=== PATIENT | male | born 2000 | race Hispanic/Latino ===

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

== ENCOUNTER 2023-10-18 08:04 | Emergency (ER) | payer OTHER, SELFPAY | END 2023-10-18 08:35 | disposition home or self-care (01) | LOC: MADERS 08:04 | DX: R11.10 Vomiting, unspecified (principal) | CPT/HCPCS: 99281 ==

== ENCOUNTER 2023-12-16 21:48 | Emergency (ER) | payer SELFPAY | END 2023-12-16 22:23 | disposition home or self-care (01) | LOC: MADERS 21:48 | DX: K52.9 Noninfective gastroenteritis and colitis, unspecified (principal) | CPT/HCPCS: 99283 ==